=== PATIENT | male | born 1965 | race Caucasian/White ===

== ENCOUNTER 2021-08-29 18:32 | Emergency (ER) | payer MEDICARE ==
[2021-08-29 19:53] LABS: BASOPHIL 0.4 % (0-2); EOSINOPHIL 0.9 % (0-5); HCT 42.2 % (42.0-52.0); HGB 13.5 g/dl (13.2-18.0); LYMPHOCYTE 10.3 % (15-48); MCV 84.4 fL (78.0-100.0); MONOCYTE 11.6 % (0-12); MPV 10.6 fL (6.0-9.5); NEUTROPHIL 76.4 % (41-80); NRBC 0; PLT 285 K/uL (150-400); RDW 12.8 % (11.5-14.0)
[2021-08-29 20:06] LABS: ALBUMIN 3.1 g/dL (3.4-5.0); BILIRUBIN - TOTAL 0.7 mg/dL (0.2-1.0); BUN/CREAT RATIO (CALC) 25.4 RATIO; CREATININE 0.71 mg/dL (0.67-1.17); GLOBULIN (CALCULATION) 4.5 g/dL; POTASSIUM 4.3 mmol/L (3.5-5.1); TOTAL PROTEIN 7.6 g/dL (6.4-8.2)
[2021-08-29 20:09] LABS: LACTIC ACID 0.9 mmol/L (0.4-1.9)
[2021-08-30] MEDS ORDERED: AUGMENTIN 875-1 EACH PO (11:41)
[2021-08-30] MEDS ORDERED: BACTRIM DS TAB1 EACH PO (11:41)
== END 2021-08-30 12:00 | disposition home or self-care (01) ==
LOC: FER 18:32
PROVIDERS: Emergency Medicine
DX: L02.11 Cutaneous abscess of neck (principal); L03.221 Cellulitis of neck; G20 Parkinson's disease; Z88.8 Allergy status to other drugs, medicaments and biological substances; Z20.822 Contact with and (suspected) exposure to COVID-19
CPT/HCPCS: 36415; 70491; 80053; 83605; 83735; 84145; 85025; 87040; J2543; Q9967; U0002

== ENCOUNTER → 2021-10-14 | Day surgery (SDC) | payer MEDICARE ==
[~2021-10-14] VITALS: Ht 172.7 cm; Wt 117.9 kg
[~2021-10-14] MED LIST: ATENOLOL25 M1 PO; AUGMENTIN 875-1 EACH PO; BACTRIM DS TAB1 EACH PO; CARBIDOPA-LEVO1 EAC7 PO; CLONAZEPAM0.5 MG PO; MELOXICAM15 MG PO; OMEPRAZOLE10 MG PO; TAMSULOSIN HCL0.4 MG PO; VENLAFAXINE H37.5 MG PO
[2021-10-14 07:15] LABS: HCT 43.4 % (42.0-52.0); HGB 13.8 g/dl (13.2-18.0); MCH 27.1 pg (25.0-31.0); MCHC 31.8 g/dL (32.0-36.0); MCV 85.1 fL (78.0-100.0); MPV 10.1 fL (6.0-9.5); RBC 5.1 M/uL (4.70-6.00); WBC 9.7 K/uL (4.0-10.5)
[2021-10-14 07:45] LABS: ALBUMIN 3.4 g/dL (3.4-5.0); BILIRUBIN - TOTAL 0.5 mg/dL (0.2-1.0); CREATININE 0.74 mg/dL (0.67-1.17); GLOBULIN (CALCULATION) 4.6 g/dL; POTASSIUM 4.2 mmol/L (3.5-5.1)
== END | disposition home or self-care (01) ==
LOC: FAS 06:39
PROVIDERS: Surgery
DX: Z12.11 Encounter for screening for malignant neoplasm of colon (principal); I10 Essential (primary) hypertension; Z96.659 Presence of unspecified artificial knee joint; Z88.8 Allergy status to other drugs, medicaments and biological substances
CPT/HCPCS: 36415; 80053; J0690; J2250; J2704; J7120